=== PATIENT | female | born 1980 ===

== ENCOUNTER 2023-05-03 06:12 | Day surgery (SDC) | payer OTHER ==
[~2023-05-03] VITALS: Ht 154.9 cm; Wt 69.9 kg
[~2023-05-03 06:12] MED LIST: CHILDREN'S ASPI81 MG PO; COZAAR50 MG PO
[2023-05-03] MEDS ORDERED: NAPR500T14 PO (10:11)
[2023-05-03] MEDS ORDERED: MORGIDOX100 MG PO (10:11)
== END 2023-05-03 11:30 | disposition home or self-care (01) ==
LOC: CIR.AMB 06:12
PROVIDERS: ATTEND Obstetrics & Gynecology
DX: N84.0 Polyp of corpus uteri (principal); N92.5 Other specified irregular menstruation; D25.0 Submucous leiomyoma of uterus; I10 Essential (primary) hypertension; Z20.822 Contact with and (suspected) exposure to COVID-19; E78.2 Mixed hyperlipidemia